=== PATIENT | male | born 1960 | race African-American/Black ===

== ENCOUNTER 2017-11-27 09:58 | Emergency (ER) | payer MEDICARE, MEDICAID ==
[~2017-11-27] VITALS: Ht 180.3 cm; Wt 102.0 kg
[2017-11-27 10:10] VITALS: BP 139/77
[2017-11-27] MEDS ORDERED: PREDNISONE 20MG TABLET PO STA (10:44)
[2017-11-27] MEDS ORDERED: ALBUTEROL (0.083%) 2.5MG/3ML NEB HHN STA (10:44)
== END 2017-11-27 11:52 | disposition home or self-care (01) ==
LOC: ER 09:58
DX: J20.9 Acute bronchitis, unspecified (principal); I10 Essential (primary) hypertension; F17.200 Nicotine dependence, unspecified, uncomplicated; E78.00 Pure hypercholesterolemia, unspecified; E11.9 Type 2 diabetes mellitus without complications; Z98.890 Other specified postprocedural states
CPT/HCPCS: 71045; 94640; 99283; J7512; J7611

== ENCOUNTER 2018-09-09 23:52 | Emergency (ER) | payer OTHER, MEDICAID ==
[~2018-09-09] VITALS: Ht 180.3 cm; Wt 87.9 kg
[2018-09-10 04:18] VITALS: BP 132/73
== END 2018-09-10 04:22 | disposition home or self-care (01) ==
LOC: ER 23:52
DX: J20.9 Acute bronchitis, unspecified (principal); E78.00 Pure hypercholesterolemia, unspecified; I10 Essential (primary) hypertension; E11.9 Type 2 diabetes mellitus without complications; F17.210 Nicotine dependence, cigarettes, uncomplicated
CPT/HCPCS: 71045; 99283

== ENCOUNTER 2025-03-13 18:32 | Emergency (ER) | payer MEDICARE, MEDICAID ==
[~2025-03-13] VITALS: Ht 177.8 cm; Wt 95.0 kg
[~2025-03-13 18:32] MED LIST: AMOX-424 MT; ATOR40TA70 PO; ENAL-77 PO; INSLIS SUBCUT; METF-1149 PO; SULF1TAB48 MT
[2025-03-13 18:44] VITALS: TEMP 36.8; O2SAT 98
[2025-03-13] MEDS ORDERED: DEXAMETHASONE 1 MG/ML ORAL SYR PO ONE (20:45)
[2025-03-13] MEDS ORDERED: ALBU18HF2 IH (21:14)
[2025-03-13] MEDS ORDERED: BENZ100C86 MT (21:14)
[2025-03-13 21:29] VITALS: BP 121/61; PULSE 80; RESP 18; O2SAT 99
[2025-03-13] MEDS: BENZONATATE 200MG CAPSULE PO ONE (21:29)
[2025-03-13] MEDS: DEXAMETHASONE 4MG TABLET PO NR (21:29)
== END 2025-03-13 21:35 | disposition home or self-care (01) ==
LOC: ER 18:32
DX: J06.9 Acute upper respiratory infection, unspecified (principal); B97.89 Other viral agents as the cause of diseases classified elsewhere; E11.9 Type 2 diabetes mellitus without complications; E78.00 Pure hypercholesterolemia, unspecified; H40.9 Unspecified glaucoma; I10 Essential (primary) hypertension; Z98.890 Other specified postprocedural states; Z79.899 Other long term (current) drug therapy
CPT/HCPCS: 99283; 71045; J8540